=== PATIENT | male | born 1995 | race Caucasian/White ===

== ENCOUNTER 2017-02-08 00:01 | Inpatient (IN) | payer SELFPAY ==
[~2017-02-08] VITALS: Ht 185.4 cm; Wt 97.2 kg
[2017-02-08] VITALS (12 sets, daily range): BP systolic 116–136; BP diastolic 48–84
--- NOTE | ~2017-02-08 | O ---
[place], [place] OPERATIVE NOTE NAME: BERNARDO LOUIS [facility] #: [id number] UNIT #: [id number] ROOM: 518 DOCTOR: GUME ROBERTS MD BIRTHDATE: [birth year] DOS: 02/08/2017 PREOPERATIVE DIAGNOSIS: Acute calculous cholecystitis. POSTOPERATIVE DIAGNOSIS: Acute calculous cholecystitis. PROCEDURE: Laparoscopic cholecystectomy. SURGEON: Gume Roberts MD SODA DRIER FEEDER: EUN. ANESTHESIA: General with endotracheal intubation. INDICATIONS: This is a 21-year-old gentleman admitted with right upper quadrant pain and was found to have acute calculous cholecystitis. It was decided to take the patient to the operating room for a laparoscopic possible open cholecystectomy. The procedure and its complications were explained to the patient in detail. Complications that were discussed included but were not limited to bleeding, infection, hematoma/seroma/abscess formation, formation, biloma formation, damage to underlying vital structures, inadvertent injury to common bile duct and incisional hernia formation. He agreed to proceed. DESCRIPTION OF PROCEDURE: After identifying the patient, the patient was brought to the operating suite and laid in the supine position. After induction of general anesthesia, the parts were painted and draped in the usual sterile fashion. An incision was made below the umbilicus in a transverse fashion. The skin and the subcutaneous tissue were incised in the line of the incision. The fascia was incised vertically and 2 stay sutures were taken with the help of 0 Vicryl on either side. The peritoneum was opened and a 12 mm Ivelisse port was introduced into the peritoneal cavity. After pneumoperitoneum was created and under direct vision, an epigastric incision of 10 mm and two 5 mm incisions were made in the right upper quadrant and appropriate size ports were introduced. The gallbladder was found to be edematous and distended. In order to better grasp the gallbladder, approximately 80 mL of bile was aspirated with the help of an aspirating needle. The gallbladder was then retracted superiorly and laterally. The cystic duct and the cystic artery were meticulously dissected, thereafter each of these structures were clipped 3 times and cut between the first and the second clip. This was done after the critical view of safety was obtained and the abdomen was clearly delineated. The gallbladder was then removed from of the bed of the gallbladder and removed from the peritoneal cavity with the help of an EndoCatch bag. It was sent for histopathological diagnosis. Thereafter, hemostasis was achieved with the help of electrocautery and by placing 2 Surgicel strips over the liver bed. After hemostasis was confirmed again, saline was used for irrigation and the spilled blood and bile was aspirated. Thereafter, the right upper quadrant and the epigastric ports were removed and there was no bleeding seen. The umbilical port was also removed and the 2 stay sutures were tied together. An additional 0 Vicryl stitch was taken to close the fascia. The edges of the skin were approximated with the help of 4-0 Vicryl after the edges were infiltrated with 1% plain [place], [place] OPERATIVE NOTE NAME: BERNARDO LOUIS Yuly UNIT #: [id number] ROOM: 8 DOCTOR: GUME ROBERTS MD BIRTHDATE: [birth year] lidocaine. Dressing was placed. The patient tolerated the procedure well and was brought back to the recovery room in a stable fashion. There were no complications. Dr. Gume Roberts, the attending surgeon, was present throughout the operating case. Gume Roberts MD CM:OPRECORD:OPERATIVE NOTE [id number] GUME ROBERTS MD 02/08/17 1141 interface
[~2017-02-08 00:01] MED LIST: ALBUTEROL0.09 MG/A2; ANTIBIOTIC; DARVOCET N 1001 TAB PO; EPIPEN 2-PAK1 MG/ML MR; KEFLEX500 MG PO; MOTRIN800 MG PO; NAPROSYN500 MG PO; NO DAILY MEDS; PREDNISONE10 MG PO; PREVACID SOLUTA30 MG PO; PRILOSEC20 MG PO; SEPTRA DS 800 M1 TAB PO; VICODIN 5/500 505 MG PO; VICODIN ES 7501 TAB PO
[2017-02-08 00:45] LABS: BASO # 0.1 10*3/uL (0.0-0.1); BASO % 0.5 % (0.0-1.0); EOS # 0.1 10*3/uL (0.0-0.4); EOS % 0.6 % (1.0-4.0); LYMPH # 2.7 10*3/uL (1.3-4.4); LYMPH % 15.4 % (27.0-41.0); MEAN CELL VOLUME 82.2 fl (80.0-94.0); MEAN CORPUSCULAR HGB 27.4 pg (27.0-31.0); MEAN CORPUSCULAR HGB CONC 33.3 g/dl (33.0-37.0); MEAN PLATELET VOLUME 11.1 fl (9.6-12.3); MONO # 0.8 10*3/uL (0.1-1.0); MONO % 4.4 % (3.0-9.0); NEUT # 13.9 10*3/uL (2.3-7.9); NEUT % 78.7 % (47.0-73.0); PLATELET COUNT AUTOMATED 284 10*3/uL (130-400); RED BLOOD COUNT 5.11 10*6/uL (4.50-5.90); RED CELL DISTRI WIDTH 14.4 % (0-14.5); WHITE BLOOD COUNT 17.7 10*3/uL (4.8-10.8)
[2017-02-08 01:00] LABS: ALBUMIN 3.5 gm/dl (3.1-4.5); ALKALINE PHOSPHATASE 76 U/L (45-117); BUN 18 mg/dl (7-24); CHLORIDE 104 mmol/L (98-107); CREATININE 0.92 mg/dL (0.70-1.30); LIPASE 56 U/L (73-393); POTASSIUM 3.6 mmol/L (3.5-5.1); SGOT/AST 14 IU/L (3-35); SGPT/ALT 22 U/L (12-78); SODIUM 140 mmol/L (136-145); TOTAL PROTEIN 7.3 gm/dL (6.4-8.2)
--- NOTE | 2017-02-08 01:05 | NUR ---
PATIENT REPORTS HIS PAIN HAS GREATLY REDUCED AND HE FEELS MUCH BETTER. PATIENT REPORTS HE IS STILL NOT ABLE TO URINATE AT THIS TIME.
[2017-02-08 01:55] LABS: BILIRUBIN NEGATIVE (NEGATIVE); BLOOD NEGATIVE (NEGATIVE); CLARITY TURBID (CLEAR); COLOR YELLOW (YELLOW); GLUCOSE NEGATIVE (NEGATIVE); KETONE 3+ (NEGATIVE); LEUKO ESTERASE NEGATIVE (NEGATIVE); NITRITE NEGATIVE (NEGATIVE); PH 6.5 (5.0-9.0); UROBILINOGEN 0.2 E.U./dl (0.2-1.0)
[2017-02-08 02:02] LABS: BACTERIA 4+; EPITHELIAL CELLS 0-2; WBC 0-2 wbc/hpf (0-5)
--- NOTE | 2017-02-08 03:30 | NUR ---
PATIENT RESTING IN BED WITH EYES CLOSED, NO SIGNS OF DISTRESS. PULSE OX 97% ON ROOM AIR. CALL LIGHT WITHIN REACH. LIGHTS DIMMED TO PROMOTE REST.
--- NOTE | 2017-02-08 04:15 | NUR ---
DR. RAPP SPOKE WITH DR. ROBERTS REGARDING CONSULT.
--- NOTE | 2017-02-08 04:16 | NUR ---
DR. ROBERTS WILL SEE PATIENT IN THE MORNING.
--- NOTE | 2017-02-08 04:27 | NUR ---
REPORT RECEIVED FROM GIOVANNY WANG RN AT THIS TIME. PATIENT TO BE UP TO FLOOR SHORTLY.
--- NOTE | 2017-02-08 05:00 | NUR ---
Time: 0500 A 21 year old MALE admitted to 5E under services of BAUTISTA ALEJANDRA DO. Pt. arrived via stretcher from ER. Chief complaint: ACUTE ABDOMINAL PAIN, ACUTE CHOLECYSTITIS. BERNABE SALGUERO
[2017-02-08] MEDS ORDERED: PRILOSEC20 M1 PO (05:15)
--- NOTE | 2017-02-08 05:24 | NUR ---
SPOKE TO DR.ALEX VILLAR AT THIS TIME REGARDING NEED FOR ADMISSION ORDERS. NEW ORDERS TO FOLLOW.
[2017-02-08 06:37] LABS: BASO % 0.3 % (0.0-1.0); EOS % 0.1 % (1.0-4.0); HEMATOCRIT 43.3 % (42.0-52.0); LYMPH # 1.5 10*3/uL (1.3-4.4); LYMPH % 10.2 % (27.0-41.0); MEAN CELL VOLUME 81.7 fl (80.0-94.0); MEAN CORPUSCULAR HGB 26.4 pg (27.0-31.0); MEAN CORPUSCULAR HGB CONC 32.3 g/dl (33.0-37.0); MEAN PLATELET VOLUME 11.6 fl (9.6-12.3); MONO # 0.7 10*3/uL (0.1-1.0); MONO % 4.8 % (3.0-9.0); NEUT # 12.6 10*3/uL (2.3-7.9); NEUT % 84.1 % (47.0-73.0); PLATELET COUNT AUTOMATED 288 10*3/uL (130-400); RED CELL DISTRI WIDTH 14.5 % (0-14.5)
--- NOTE | 2017-02-08 06:43 | NUR ---
IV NUBAIN ADMINISTERED AT THIS TIME PER ONE TIME ORDER. PATIENT C/O MID EPIGASTRIC ABDOMINAL PAIN, RATED 6/10. WILL MONITOR EFFECTIVENESS. CALL LIGHT LEFT IN REACH.
[2017-02-08 06:55] LABS: ALBUMIN 3.4 gm/dl (3.1-4.5); ALKALINE PHOSPHATASE 71 U/L (45-117); BUN 16 mg/dl (7-24); CHLORIDE 107 mmol/L (98-107); POTASSIUM 4.3 mmol/L (3.5-5.1); SGOT/AST 13 IU/L (3-35); SGPT/ALT 20 U/L (12-78); SODIUM 139 mmol/L (136-145); TOTAL PROTEIN 7.2 gm/dL (6.4-8.2)
[2017-02-08 06:56] LABS: PHOSPHOROUS 2.3 mg/dL (2.5-4.9)
[2017-02-08 07:04] LABS: FREE T4 1.31 ng/dl (0.76-1.46); THYROID STIM HORMONE (HS) 1.37 uIU/ml (0.358-4.75)
[2017-02-08 07:07] LABS: ACT PARTIAL THROMBO TIME 28.1 SECONDS (20.8-31.5)
[2017-02-08 07:17] LABS: VITAMIN D, 25-HYDROXY 21.4 ng/mL (30-100)
--- NOTE | 2017-02-08 08:20 | NUR ---
PATIENT TAKEN OFF FLOOR TO SURGERY AT THIS TIME
--- NOTE | 2017-02-08 14:11 | NUR ---
PT MEDICATED WITH DILAUDID PER PRN ORDER FOR COMPLAINTS OF POST OP PAIN 10/10. WILL MONITOR FOR EFFECTIVENESS
--- NOTE | 2017-02-08 14:45 | NUR ---
PER PATIENT, MEDICATION HAS BEEN EFFECTIVE. NO FURTHER COMPLAINTS.
--- NOTE | 2017-02-08 17:37 | NUR ---
PATIENT MEDICATED WITH DILAUDID AT THIS TIME UPON REQUEST FOR COMPLAINTS OF POST OP ABD PAIN. WILL MONITOR.
--- NOTE | 2017-02-08 17:53 | NUR ---
PATIENT STATES THAT PAIN MEDICATION HAS BEEN EFFECTIVE.
--- NOTE | 2017-02-08 21:00 | NUR ---
SLEEPING, AWAKENS EASILY. RESPIRATIONS EASY. LUNG CLEAR. PULSE OX 98% RA. ABD SOFT WITH HYPOACTIVE BOWEL SOUNDS, C/O TENDERENSS BUT DENIES NEED FOR PAIN MEDS. 4 SURGICAL SITES NOTED WITH GLUE IN PLACE. DENIES N/V/D, PATIENT BELCHING BUT NOT PASSING FLATUS. OFFERED AND EDUCATED REGARDING TEDS, DECLINED. IV FLUIDS INFUSING PER ORDER. CALL LIGHT WITHIN REACH. NO VOICED COMPLAINTS
[2017-02-09] VITALS: BP 110/56
--- NOTE | 2017-02-09 | NUR ---
SLEEPING WITH NO DISTRESS NOTED. RESPIRATIONS EASY. VSS. IV FLUIDS MAINTAINED. CALL LIGHT WITHIN REACH
--- NOTE | 2017-02-09 02:10 | NUR ---
CONTINUES TO SLEEP. NO DISTRESS NOTED. IV FLUIDS MAINTAINED. CALL LIGHT WITHIN REACH
--- NOTE | 2017-02-09 03:30 | NUR ---
AWAKE, PLAYING ON PHONE. IV FLUIDS MAINTAINED. NO VOICED COMPLAINTS.
--- NOTE | 2017-02-09 06:00 | NUR ---
SLEPT THROUGHOUT NIGHT WITH NO DISTRESS NOTED. RESPIRATIONS EASY. NO C/O ABD "SORENESS" BUT DENIES PAIN. NO N/V. IV FLUIDS MAINTAINED. CALL LIGHT WITHIN REACH. NO VOICED COMPLAINTS THIS SHIFT
[2017-02-09 06:55] LABS: HEMATOCRIT 39.1 % (42.0-52.0); HEMOGLOBIN 12.4 g/dl (14.0-18.0); MEAN CELL VOLUME 83.2 fl (80.0-94.0); MEAN CORPUSCULAR HGB 26.4 pg (27.0-31.0); MEAN CORPUSCULAR HGB CONC 31.7 g/dl (33.0-37.0); MEAN PLATELET VOLUME 11.5 fl (9.6-12.3); PLATELET COUNT AUTOMATED 258 10*3/uL (130-400); RED CELL DISTRI WIDTH 14.6 % (0-14.5); WHITE BLOOD COUNT 16.8 10*3/uL (4.8-10.8)
[2017-02-09 07:13] LABS: ALBUMIN 3.1 gm/dl (3.1-4.5); ALKALINE PHOSPHATASE 63 U/L (45-117); BUN 7 mg/dl (7-24); CHLORIDE 107 mmol/L (98-107); CREATININE 0.82 mg/dL (0.70-1.30); SGOT/AST 50 IU/L (3-35); SGPT/ALT 69 U/L (12-78); SODIUM 140 mmol/L (136-145)
[2017-02-09 07:16] LABS: ATYPICAL LYMPHS 4 % (0-0); PLATELET SUFFICIENCY NORMAL (NORMAL); TOTAL CELLS COUNTED 100 #CELLS
--- NOTE | 2017-02-09 07:48 | NUR ---
PT REQUESTED AND GIVEN TYLENOL FOR C/O PAIN. NO DISTRESS NOTED. POST OP INCISIONS ASYMPTOMATIC. IV FLUIDS INFUSING. SEE SHIFT ASSESSMENT.
[2017-02-09 08:00] VITALS: BP 116/64
--- NOTE | 2017-02-09 08:30 | NUR ---
Telecom Billing Analyst in to talk to patient. Patient states lives at HOME with HIS SISTER. There are 3 steps in the home. Physician: DR ZENDEJAS Pharmacy: [facility] Home health services: NONE Patient's level of ADLs: INDEPENDENT Patient has working utilities: YES DME: NONE Follow-up physician's appointment after d/c: WILL BE MADE PRIOR TO DC Does patient want to access PORTAL?: Discharge plan HOME. PETER KIDD
--- NOTE | 2017-02-09 09:20 | NUR ---
MEDICATED IV DILAUDID FOR C/O POST OP PAIN. STATES TYELNOL DID NOT HELP.
[2017-02-09 12:00] VITALS: BP 122/60
[2017-02-09] MEDS ORDERED: VITAMIN D32000 UNI1 PO (12:22)
[2017-02-09] MEDS ORDERED: FLAGYL500 MG PO ×2 (12:23→12:26)
[2017-02-09] MEDS ORDERED: CIPRO500 MG PO ×2 (12:23→12:26)
[2017-02-09] MEDS ORDERED: VICODIN 5-3001 EACH PO (12:26)
[2017-02-09] MEDS ORDERED: VITAMIN D-32000 UNIT PO (12:26)
--- NOTE | 2017-02-09 13:03 | NUR ---
DISCHARGED TO HOME IN CARE OF FAMILY. INSTRUCTIONS AND PERSCRIPTIONS REVIEWED WITH PT . REFUSED FLU VACCINE.
== END 2017-02-09 13:03 | disposition home or self-care (01) | DRG 854 ==
LOC: ED 00:01 → 5E 04:14
PROVIDERS: Emergency Medicine Emergency Medical Services; Internal Medicine; Surgery; ADMIT Internal Medicine
PROC: 0FT44ZZ Resection of Gallbladder, Percutaneous Endoscopic Approach (ICD-10-PCS; principal; 2017-02-08)
DX: A41.9 Sepsis, unspecified organism (principal); K80.00 Calculus of gallbladder with acute cholecystitis without obstruction; D72.829 Elevated white blood cell count, unspecified; R73.9 Hyperglycemia, unspecified; R82.4 Acetonuria; Z71.6 Tobacco abuse counseling; E55.9 Vitamin D deficiency, unspecified; Z88.1 Allergy status to other antibiotic agents; F17.200 Nicotine dependence, unspecified, uncomplicated; F10.20 Alcohol dependence, uncomplicated; Z82.49 Family history of ischemic heart disease and other diseases of the circulatory system; Z80.9 Family history of malignant neoplasm, unspecified; E66.3 Overweight; E83.39 Other disorders of phosphorus metabolism; Z68.27 Body mass index [BMI] 27.0-27.9, adult

== ENCOUNTER 2018-05-19 20:37 | Emergency (ER) | payer SELFPAY ==
[~2018-05-19] VITALS: Ht 185.4 cm; Wt 96.2 kg
[~2018-05-19 20:37] MED LIST changes: +CIPRO500 MG PO; +FLAGYL500 MG PO; +PRILOSEC20 M1 PO; +VICODIN 5-3001 EACH PO; +VITAMIN D-32000 UNIT PO; +VITAMIN D32000 UNI1 PO
[2018-05-19 20:41] VITALS: BP 148/92
== END 2018-05-19 22:38 | disposition home or self-care (01) ==
LOC: ED 20:37
DX: S66.911A Strain of unspecified muscle, fascia and tendon at wrist and hand level, right hand, initial encounter (principal); S67.21XA Crushing injury of right hand, initial encounter; F17.200 Nicotine dependence, unspecified, uncomplicated; Z91.030 Bee allergy status; Z88.1 Allergy status to other antibiotic agents; Z79.899 Other long term (current) drug therapy; Z79.2 Long term (current) use of antibiotics; W20.8XXA Other cause of strike by thrown, projected or falling object, initial encounter; Y93.89 Activity, other specified; Y92.89 Other specified places as the place of occurrence of the external cause; Y99.8 Other external cause status

== ENCOUNTER 2018-06-05 14:10 | Emergency (ER) | payer OTHER ==
[~2018-06-05] VITALS: Ht 185.4 cm; Wt 96.2 kg
[2018-06-05 14:11] VITALS: BP 131/89
[2018-06-05] MEDS ORDERED: PREDNISONE50 MG PO (16:14)
[2018-06-05] MEDS ORDERED: ZITHROMAX250 MG PO (16:14)
== END 2018-06-05 16:22 | disposition home or self-care (01) ==
LOC: ED 14:10
DX: J20.9 Acute bronchitis, unspecified (principal); F17.200 Nicotine dependence, unspecified, uncomplicated; Z91.030 Bee allergy status; Z88.1 Allergy status to other antibiotic agents

== ENCOUNTER → 2018-07-31 | Outpatient (CLI) | payer SELFPAY ==
[~2018-07-31] MED LIST changes: +PREDNISONE50 MG PO; +ZITHROMAX250 MG PO
[2018-07-31 14:31] LABS: URINE AMPHETAMINES < 1000 (1000ng/ml); URINE BARBITURATES < 200 (200ng/ml); URINE BENZODIAZEPINES < 200 (200ng/ml); URINE CANNABINOIDS (THC) < 50 (50ng/ml); URINE COCAINE < 300 (300ng/ml); URINE METHADONE < 300 (300ng/ml); URINE OPIATES < 300 (300ng/ml)
[2018-07-31 14:34] LABS: URINE PHENCYCLIDINE < 25 (25ng/ml)
== END | disposition home or self-care (01) ==
LOC: LAB 12:09
PROVIDERS: Physician Assistant
DX: Z79.899 Other long term (current) drug therapy (principal)

== ENCOUNTER 2021-07-07 08:02 | Emergency (ER) | payer SELFPAY ==
[~2021-07-07] VITALS: Wt 113.4 kg
[2021-07-07 08:19] VITALS: BP 134/88
[2021-07-07] MEDS ORDERED: CLEOCIN HCL300 MG PO (08:38)
[2021-07-07] MEDS ORDERED: CEFDINIR300 MG PO (08:38)
== END 2021-07-07 09:07 | disposition home or self-care (01) ==
LOC: ED 08:02
DX: H57.89 Other specified disorders of eye and adnexa (principal); Z91.030 Bee allergy status; Z88.1 Allergy status to other antibiotic agents; Z98.890 Other specified postprocedural states; Z87.891 Personal history of nicotine dependence; Z90.89 Acquired absence of other organs

== ENCOUNTER 2024-10-11 20:18 | Emergency (ER) | payer OTHER ==
[~2024-10-11] VITALS: Ht 182.9 cm; Wt 136.1 kg
[~2024-10-11 20:18] MED LIST changes: +CEFDINIR300 MG PO; +CLEOCIN HCL300 MG PO
[2024-10-11 21:09] LABS: MANUAL DIFF REFLEX YES; MEAN CELL VOLUME 82.5 fl (80.0-94.0); MEAN CORPUSCULAR HGB 26.0 pg (27.0-31.0); MEAN PLATELET VOLUME 10.9 fl (9.6-12.3); NUCLEATED RED BLOOD CELL 0.0 % (0.0-0.0); NUCLEATED RED BLOOD CELL 0.0 10*3/uL (0.0-0.0); PLATELET COUNT AUTOMATED 322 10*3/uL (130-400); RED CELL DISTRI WIDTH 14.9 % (0-14.5)
[2024-10-11 21:29] LABS: BASOPHILS 1 % (0-1); PLATELET SUFFICIENCY NORMAL (NORMAL)
[2024-10-11 21:32] LABS: BUN 16 mg/dl (9-23); SGPT/ALT 39 U/L (5-49)
[2024-10-11 21:49] VITALS: BP 120/62
== END 2024-10-11 23:22 | disposition left against medical advice (07) ==
LOC: ED 20:18
PROVIDERS: Nurse Practitioner Family
DX: R60.0 Localized edema (principal); R25.2 Cramp and spasm; Z91.030 Bee allergy status; Z88.1 Allergy status to other antibiotic agents; Z87.891 Personal history of nicotine dependence; Z53.29 Procedure and treatment not carried out because of patient's decision for other reasons